=== PATIENT | male | born 1965 | race African-American/Black ===

== ENCOUNTER 2019-08-07 07:34 | Emergency (ER) | payer BC ==
[2019-08-07 08:03] LABS: Urine Blood NEGATIVE (NEG); Urine Glucose NEGATIVE (NEG); Urine Protein NEGATIVE (NEG)
[2019-08-07] MEDS ORDERED: FENTANYL CITR 100 MCG/2 ML ONE (08:08)
[2019-08-07] MEDS ORDERED: NA CHLORIDE 0.9% 1,000 ML ONE (08:08)
--- NOTE | 2019-08-07 08:33 | RAD REPORT ---
EXAM DESCRIPTION: CT - Stone Protocol - 08/07/2019 8:18 am CLINICAL HISTORY: Abdominal pain. COMPARISON: None. TECHNIQUE: Computed axial tomography of the abdomen pelvis was obtained without oral or IV contrast. Lack of IV and oral contrast limits evaluation of solid organs, bowel, and vessels. Coronal reformat destin images were obtained and reviewed. All CT scans are performed using dose optimization technique as appropriate and may include automated exposure control or mA/KV adjustment according to patient size. FINDINGS: A renal calculus is not seen. An ureteral calculus is not noted. A bladder calculus is not present. 9 millimeter low-density mass extends off the right kidney. It is nonspecific without IV co ntrast probably represents a cyst Subcentimeter low-density lesions within the liver are nonspecific but probably cysts. The Spleen, pancreas and adrenals appear grossly normal There is no evidence of diverticulitis. The appendix appears normal Spondylolysis L5. Small left inguinal hernia contains fat Spondylosis involves lumbar spine resulting in spinal stenosis Small umbilical hernia contains fat IMPRESSION: Negative for a genitourinary calculus Small left inguinal hernia contains fat 9 millimeter low-density mass extends off the right kidney. It is nonspecific without IV contrast pro bably represents a cyst . Followup renal ultrasound in 6 months recommended
[2019-08-07 08:42] LABS: Absolute Lymphocytes (CBC) 2.2 K/uL (0.7-4.9); Basophils % 0.8 % (0-1.3); MPV 10.5 fL (7.6-11.3); RBC Red Blood Cell Count 5.05 M/uL (4.33-5.43)
[2019-08-07 08:48] LABS: Potassium 3.8 mmol/L (3.5-5.1)
[2019-08-07] MEDS ORDERED: SIMETHICONE 80 MG TAB ONE (09:09)
[2019-08-07] MEDS ORDERED: DICYCLOMINE HCL 10 MG CAP ONE (09:09)
--- NOTE | 2019-08-07 10:50 | ER ---
Nurse's Notes [facility] Name: Myke Fu Age: 53 yrs Sex: Male : 1965 Arrival Date: 08/07/2019 Time: 07:37 Bed 14 Private MD: out of town, doctor Diagnosis: Gas pain;Lower abdominal pain, unspecified Presentation: 08/07 07:47 Presenting complaint: Patient states: left flank pain, radiates to LLQ; feels bloated; jl7 took laxative yesterday and had a BM this morning. Transition of care: patient was not received from another setting of care. Onset of symptoms was August 06, 2019. Risk Assessment: Do you want to hurt yourself or someone else? Patient reports no desire to harm self or others. Initial Sepsis Screen: Does the patient meet any 2 criteria? No. Patient's initial sepsis screen is negative. Does the patient have a suspected source of infection? No. Patient's initial sepsis screen is negative. Care prior to arrival: None. 07:47 Method Of Arrival: Ambulatory [facility] 07:47 Acuity: KAVIN 3 jl7 Triage Assessment: 07:49 General: Appears in no apparent distress. uncomfortable, Behavior is calm, cooperative, jl7 appropriate for age. Pain: Complains of pain in left flank Pain radiates to left lower quadrant Pain currently is 6 out of 10 on a pain scale. Quality of pain is described as sharp, Pain began 1 day ago. Is continuous. EENT: No signs and/or symptoms were reported regarding the EENT system. Neuro: Level of Consciousness is awake, alert, obeys commands, Oriented to person, place, time, situation. Cardiovascular: Patient's skin is warm and dry. Respiratory: Airway is patent Respiratory effort is even, unlabored, Respiratory pattern is regular, symmetrical. GI: Bowel sounds present X 4 quads. Abd is soft Abdomen is tender to palpation in left lower quadrant. : No signs and/or symptoms were reported regarding the genitourinary system. Denies burning with urination, pain. Derm: Skin is dry, Skin is normal, Skin temperature is warm. Musculoskeletal: No signs and/or symptoms reported regarding the musculoskeletal system. Historical: - Allergies: 07:49 No Known Allergies; jl7 - Home Meds: 07:49 Unknown HTN med [Active]; jl7 - PMHx: 07:49 Hypertension; 7 - PSHx: 07:49 None; jl7 - Immunization history:: Adult Immunizations not up to date. - Social history:: Smoking status: Patient uses tobacco products, smokes one pack cigarettes per day. - Ebola Screening: : No symptoms or risks identified at this time. Screenin:17 Abuse screen: Denies threats or abuse. Denies injuries from another. Nutritional [facility] screening: No deficits noted. Tuberculosis screening: No symptoms or risk factors identified. Fall Risk IV access (20 points). Total Yang Fall Scale indicates No Risk (0-24 pts). Assessment: 07:45 General: See triage assessment. [facility] 08:45 Reassessment: Patient appears in no apparent distress at this time. Patient and/or jl7 family updated on plan of care and expected duration. Pain level reassessed. Patient is alert, oriented x 3, equal unlabored respirations, skin warm/dry/pink. Patient states symptoms have improved. 10:36 Reassessment: Patient appears in no apparent distress at this time. Patient is alert, ca1 oriented x 3, equal unlabored respirations, skin warm/dry/pink. 11:09 Reassessment: Instructed on follow up US in 6 months. PT alert, oriented, ambulatory ca1 with steady gait. Vital Signs: 07:49 BP 135 / 99; Pulse 86; Resp 17 S; Temp 98(O); Pulse Ox 97% on R/A; Weight 99.79 kg (R); jl7 Height 5 ft. 9 in. (175.26 cm) (R); Pain 6/10; 08:40 BP 117 / 92; Pulse 66; Resp 17; Temp 98.8(O); Pulse Ox 96% on R/A; mh5 10:11 BP 127 / 87; Pulse 64; Resp 16; Temp 98.2(O); Pulse Ox 100% on R/A; mh5 11:09 BP 126 / 86; Pulse 74; Resp 16 S; Pulse Ox 100% on R/A; ca1 07:49 Body Mass Index 32.49 (99.79 kg, 175.26 cm) [facility] ED Course: 07:37 Patient arrived in ED. ag5 07:37 out of town, doctor is Private Physician. ag5 07:38 Sheeba Negro, RN is Primary Nurse. jl7 07:39 Tiffanie Butler FNP-C is [facility]. snw 07:39 Deepak Gaytan MD is Attending Physician. snw 07:48 Triage completed. jl7 07:49 Arm band placed on right wrist. jl7 08:00 Lab(s) recollected, by me, sent to lab. First set of blood cultures drawn. 5 08:17 Patient has correct armband on for positive identification. Placed in gown. Bed in low jl7 position. Call light in reach. Side rails up X 1. Pulse ox on. NIBP on. 08:18 CT Stone Protocol In Process Unspecified. EDMS 08:18 Inserted saline lock: 20 gauge in left antecubital area, using aseptic technique. Blood 5 collected. 08:19 Blood Culture Adult (2) Sent. mh5 08:19 Chem 7 Sent. 5 08:19 CBC with Diff Sent. 5 08:30 Second set of blood cultures drawn by me. [facility] 10:32 Primary Nurse role handed off by Sheeba Negro, ARIANNA ca1 10:32 Barbara Hurst, ARIANNA is Primary Nurse. ca1 11:10 No provider procedures requiring assistance completed. IV discontinued, intact, ca1 bleeding controlled, No redness/swelling at site. Pressure dressing applied. Administered Medications: 08:10 Drug: NS 0.9% 1000 ml Route: IV; Rate: 125 ml/hr; Site: left antecubital; jl7 11:11 Follow up: Response: No adverse reaction; IV Status: Completed infusion; IV Intake: ca1 1000ml 08:11 Drug: fentaNYL (PF) 25 mcg Route: IVP; Site: left antecubital; jl7 08:35 Follow up: Response: No adverse reaction; Pain is decreased jl7 09:11 Drug: Bentyl 20 mg Route: PO; jl7 10:00 Follow up: Response: No adverse reaction; Pain is decreased ca1 09:12 Drug: Simethicone 240 mg Route: PO; jl7 10:00 Follow up: Response: No adverse reaction; Pain is decreased ca1 Intake: 11:11 IV: 1000ml; Total: 1000ml. ca1 Outcome: 10:49 Discharge ordered by . snw 11:10 Discharged to home ambulatory, with significant other. ca1 11:10 Condition: stable 11:10 Discharge instructions given to patient, Instructed on discharge instructions, follow up and referral plans. medication usage, Demonstrated understanding of instructions, follow-up care, medications, Prescriptions given X 2. 11:10 Patient left the ED. ca1 Signatures: Dispatcher [employer] EDMS Tiffanie Butler, FREDRICK-C BULLET SLUG CASTING MACHINE OPERATOR-[place]ow Jerrica Ceja 5 Sheeba Negro RN RN jl7 Barbara Hurst RN RN ca1 Selena, Gina 5 Corrections: (The following items were deleted from the chart) 07:52 07:49 BP 135 / 99; Pulse 86bpm; Resp 17bpm; Spontaneous; Pulse Ox 97% RA; Temp 17F jl7 Oral; 99.79 kg Reported; Height 5 ft. 9 in. Reported; BMI: 32.4; Pain 6/10; jl7
--- NOTE | 2019-08-07 10:51 | EDPHYS ---
Physician Documentation [facility] Name: Myke Fu Age: 53 yrs Sex: Male : 1965 Arrival Date: 08/07/2019 Time: 07:37 Bed 14 Private MD: out of town, doctor ED Physician Deepak Gaytan HPI: 08/07 10:42 This 53 yrs old Black Male presents to ER via Ambulatory with complaints of Abdominal snw Pain, Breathing Difficulty. 10:42 The patient presents with abdominal pain in the left upper quadrant, in the left lower snw quadrant, abdominal distention. Onset: The symptoms/episode began/occurred suddenly, 1 day(s) ago, and became persistent. The symptoms do not radiate. Associated signs and symptoms: Pertinent positives: increased shortness of breath with deep inspiration. The symptoms are described as crampy. Severity of pain: At its worst the pain was moderate severe in the emergency department the pain is unchanged. The patient has not experienced similar symptoms in the past. It is unknown whether or not the patient has recently seen a physician. Historical: - Allergies: 07:49 No Known Allergies; jl7 - Home Meds: 07:49 Unknown HTN med [Active]; jl7 - PMHx: 07:49 Hypertension; jl7 - PSHx: 07:49 None; jl7 - Immunization history:: Adult Immunizations not up to date. - Social history:: Smoking status: Patient uses tobacco products, smokes one pack cigarettes per day. - Ebola Screening: : No symptoms or risks identified at this time. ROS: 10:41 Constitutional: Negative for fever, chills, and weight loss, Eyes: Negative for injury, snw pain, redness, and discharge, ENT: Negative for injury, pain, and discharge, Neck: Negative for injury, pain, and swelling, Cardiovascular: Negative for chest pain, palpitations, and edema, Respiratory: Negative for shortness of breath, cough, wheezing, and pleuritic chest pain, Back: Negative for injury and pain, + left flank pain MS/Extremity: Negative for injury and deformity, Skin: Negative for injury, rash, and discoloration, Neuro: Negative for headache, weakness, numbness, tingling, and seizure. 10:41 Psych: Negative for depression, anxiety, suicide ideation, homicidal ideation, and hallucinations. 10:41 Abdomen/GI: Positive for abdominal pain, constipation, abdominal distension. Exam: 07:47 Constitutional: This is a well developed, well nourished patient who is awake, alert, snw and in no acute distress. Head/Face: Normocephalic, atraumatic. Eyes: Pupils equal round and reactive to light, extra-ocular motions intact. Lids and lashes normal. Conjunctiva and sclera are non-icteric and not injected. Cornea within normal limits. Periorbital areas with no swelling, redness, or edema. ENT: Nares patent. No nasal discharge, no septal abnormalities noted. Tympanic membranes are normal and external auditory canals are clear. Oropharynx with no redness, swelling, or masses, exudates, or evidence of obstruction, uvula midline. Mucous membranes moist. Neck: Trachea midline, no thyromegaly or masses palpated, and no cervical lymphadenopathy. Supple, full range of motion without nuchal rigidity, or vertebral point tenderness. No Meningismus. Chest/axilla: Normal chest wall appearance and motion. Nontender with no deformity. No lesions are appreciated. Cardiovascular: Regular rate and rhythm with a normal S1 and S2. No gallops, murmurs, or rubs. Normal PMI, no JVD. No pulse deficits. Respiratory: Lungs have equal breath sounds bilaterally, clear to auscultation and percussion. No rales, rhonchi or wheezes noted. No increased work of breathing, no retractions or nasal flaring. Back: No spinal tenderness. No costovertebral tenderness. Full range of motion. 07:47 Skin: Warm, dry with normal turgor. Normal color with no rashes, no lesions, and no evidence of cellulitis. MS/ Extremity: Pulses equal, no cyanosis. Neurovascular intact. Full, normal range of motion. Neuro: Awake and alert, GCS 15, oriented to person, place, time, and situation. Cranial nerves II-XII grossly intact. Motor strength 5/5 in all extremities. Sensory grossly intact. Cerebellar exam normal. Normal gait. Psych: Awake, alert, with orientation to person, place and time. Behavior, mood, and affect are within normal limits. 07:47 Abdomen/GI: Inspection: distension, that is mild, Bowel sounds: hyperactive, in all quadrants, Palpation: moderate abdominal tenderness, in the left lower quadrant. Vital Signs: 07:49 BP 135 / 99; Pulse 86; Resp 17 S; Temp 98(O); Pulse Ox 97% on R/A; Weight 99.79 kg (R); jl7 Height 5 ft. 9 in. (175.26 cm) (R); Pain 6/10; 08:40 BP 117 / 92; Pulse 66; Resp 17; Temp 98.8(O); Pulse Ox 96% on R/A; mh5 10:11 BP 127 / 87; Pulse 64; Resp 16; Temp 98.2(O); Pulse Ox 100% on R/A; mh5 11:09 BP 126 / 86; Pulse 74; Resp 16 S; Pulse Ox 100% on R/A; ca1 07:49 Body Mass Index 32.49 (99.79 kg, 175.26 cm) jl7 MDM: 07:41 Patient medically screened. snw 10:44 Data reviewed: vital signs, nurses notes, lab test result(s), radiologic studies. Data snw interpreted: Pulse oximetry: on room air is 100 %. Interpretation: normal. Counseling: I had a detailed discussion with the patient and/or guardian regarding: the historical points, exam findings, and any diagnostic results supporting the discharge/admit diagnosis, the presence of at least one elevated blood pressure reading (>120/80) during this emergency department visit, lab results, radiology results, the need for outpatient follow up, for definitive care, to return to the emergency department if symptoms worsen or persist or if there are any questions or concerns that arise at home. Response to treatment: the patient's symptoms have resolved after treatment, the patient's pain is gone. Special discussion: Based on the patient's Hx, exam, and Dx evaluation, there is no indication for emergent surgery or inpatient Tx. It is understood by the patient/guardian that if the Sx's persist or worsen they need to return immediately for re-evaluation. I have referred the patient to see his PCP for further evaluation of high blood pressure. Based on the history and exam findings, there is no indication for further emergent testing or inpatient evaluation. I discussed with the patient/guardian the need to see the primary care provider for further evaluation of the symptoms. 08/07 07:49 Order name: CBC with Diff; Complete Time: 09:04 snw 08/07 07:49 Order name: Chem 7; Complete Time: 09:04 [facility] 08/07 07:49 Order name: CT Stone Protocol; Complete Time: 08:44 [facility] 08/07 07:49 Order name: Blood Culture Adult (2) [facility] 08/07 07:56 Order name: Urine Dipstick--Ancillary (enter results); Complete Time: 08:09 em1 Administered Medications: 08:10 Drug: NS 0.9% 1000 ml Route: IV; Rate: 125 ml/hr; Site: left antecubital; 7 11:11 Follow up: Response: No adverse reaction; IV Status: Completed infusion; IV Intake: ca1 1000ml 08:11 Drug: fentaNYL (PF) 25 mcg Route: IVP; Site: left antecubital; 7 08:35 Follow up: Response: No adverse reaction; Pain is decreased jl7 09:11 Drug: Bentyl 20 mg Route: PO; jl7 10:00 Follow up: Response: No adverse reaction; Pain is decreased ca1 09:12 Drug: Simethicone 240 mg Route: PO; jl7 10:00 Follow up: Response: No adverse reaction; Pain is decreased ca1 Disposition: 15:18 Co-signature as Attending Physician, Deepak Gaytan MD I agree with the assessment and rohan plan of care. Disposition: 08/07/19 10:49 Discharged to Home. Impression: Gas pain, Lower abdominal pain, unspecified. - Condition is Stable. - Discharge Instructions: Abdominal Pain, Adult, Constipation, Adult, Flank Pain, Adult, Intestinal Gas and Gas Pains, Pediatric, Rehydration, Adult. - Prescriptions for Gas- X Ultra-Strength - take 1 unit by ORAL route 1-3 times daily; 1 box. Bentyl 20 mg Oral Tablet - take 1 tablet by ORAL route every 6 hours As needed; 20 tablet. - Work release form, Medication Reconciliation Form, Thank You Letter, Antibiotic Education, Prescription Opioid Use form. - Follow up: Private Physician; When: 2 - 3 days; Reason: Recheck today's complaints, Continuance of care, Re-evaluation by your physician. Follow up: Emergency Department; When: As needed; Reason: Worsening of condition. Signatures: Dispatcher [employer] Deepak Cannon MD MD cha Therrien, Shelly, DRIER TAKE OFF TENDER-C DRIER TAKE OFF TENDER-[place]ow Sheeba Negro RN RN jl7 Barbara Hurst RN RN ca1 Corrections: (The following items were deleted from the chart) 11:10 10:49 08/07/2019 10:49 Discharged to Home. Impression: Gas pain; Lower abdominal pain, ca1 unspecified. Condition is Stable. Forms are Medication Reconciliation Form, Thank You Letter, Antibiotic Education, Prescription Opioid Use. Follow up: Private Physician; When: 2 - 3 days; Reason: Recheck today's complaints, Continuance of care, Re-evaluation by your physician. Follow up: Emergency Department; When: As needed; Reason: Worsening of condition. snw
[2019-08-07 12:04] VITALS: TEMP 98.2; O2SAT 100
[2019-08-07 12:06] VITALS: BP 126/86
== END 2019-08-07 11:10 | disposition home or self-care (01) ==
LOC: ER 07:34
DX: R14.1 Gas pain (principal); F17.210 Nicotine dependence, cigarettes, uncomplicated; I10 Essential (primary) hypertension
CPT/HCPCS: 96361; 87040 ×2; 85025; 80048; 36415; 81003; 76377; 74176; 96374; 99284; J3010; J7030